=== PATIENT | female | born 1950 | race Hispanic/Latino ===

== ENCOUNTER → 2024-10-11 | Outpatient (CLI) | payer OTHER, MEDICARE ==
[~2024-10-11] MED LIST: ATOR40TA71 PO; EMPA25TA PO; LOSA25TA41 PO; MECL-226 PO; METF-444 PO; PIOG30TA70 PO; SEMA14TA2 PO; SITA100T12 PO
== END | disposition home or self-care (01) ==
LOC: SHCH 13:19
PROVIDERS: ATTEND Internal Medicine Cardiovascular Disease
DX: I10 Essential (primary) hypertension (principal); I73.9 Peripheral vascular disease, unspecified
CPT/HCPCS: 93306